=== PATIENT | female | born 1950 | race Caucasian/White ===

== ENCOUNTER → 2016-07-26 | Outpatient (CLI) | payer MEDICARE ==
--- NOTE | 2016-07-27 09:44 | MM ---
Reason for exam: screening (asymptomatic). Last mammogram was performed 1 year and 1 month ago. History: Patient is postmenopausal. Family history of ovarian cancer in paternal cousin and breast cancer in aunt. Physical Findings: A clinical breast exam by your physician is recommended on an annual basis and results should be correlated with mammographic findings. MG 3D Screening Mammo W/Cad Bilateral CC and MLO view(s) were taken. Prior study comparison: June 15, 2015, bilateral MG 3d screening mammo w/cad. June 11, 2014, bilateral MG screening mammo w CAD. The breast tissue is heterogeneously dense. This may lower the sensitivity of mammography. Benign calcifications. There is no discrete abnormality. No significant changes when compared with prior studies. ASSESSMENT: Benign, BI-RAD 2 RECOMMENDATION: Routine screening mammogram of both breasts in 1 year.
== END | disposition home or self-care (01) ==
LOC: RADMAMWWP 14:14
PROVIDERS: ATTEND Internal Medicine
DX: Z12.31 Encounter for screening mammogram for malignant neoplasm of breast (principal)
CPT/HCPCS: 77063; G0202

== ENCOUNTER → 2016-08-25 | Outpatient (CLI) | payer MEDICARE ==
--- NOTE | 2016-08-26 12:06 | NM ---
EXAMINATION TYPE: NM thyroid image w uptake DATE OF EXAM: 08/26/2016 COMPARISON: NONE HISTORY: Nontoxic goiter TECHNIQUE: After the intravenous administration of 10.44 mCi Tc 99m Sodium Pertechnetate, thyroid samson ging is performed 10 minutes post injection. Thyroid iodine uptake is calculated after the oral admin istration of 15.0 uCi I-131 capsule. FINDINGS: There is a nodule in the mid portion of the left thyroid. This appears to be suppressing th e right thyroid somewhat. The 4 hour iodine uptake is calculated at 13.5% (normal range 8-14%). The 24-hour iodine uptake is calculated at 34.5% (normal range 15-35%). IMPRESSION: HOT NODULE IN THE MID POLAR REGION OF THE LEFT LOBE OF THYROID WITH UPTAKE VALUES IN THE UPPER LIMITS OF NORMAL. THYROID ULTRASOUND WOULD BE SUGGESTED.
== END | disposition home or self-care (01) ==
LOC: RADNMMAIN 10:39
PROVIDERS: ATTEND Internal Medicine
DX: E04.1 Nontoxic single thyroid nodule (principal)
CPT/HCPCS: 78014; A9528; A9512

== ENCOUNTER → 2017-08-14 | Outpatient (CLI) | payer MEDICARE ==
--- NOTE | 2017-08-15 13:26 | MM ---
Reason for exam: screening (asymptomatic). Last mammogram was performed 1 year and 1 month ago. History: Patient is postmenopausal. Family history of ovarian cancer in paternal cousin and breast cancer in aunt. Physical Findings: A clinical breast exam by your physician is recommended on an annual basis and results should be correlated with mammographic findings. MG 3D Screening Mammo W/Cad Bilateral CC and MLO view(s) were taken. Prior study comparison: July 26, 2016, bilateral MG 3d screening mammo w/cad. June 15, 2015, bilateral MG 3d screening mammo w/cad. The breast tissue is heterogeneously dense. This may lower the sensitivity of mammography. Finding: There are typically benign vascular, dystrophic, round calcifications in both breasts. There is no discrete abnormality. Developing asymmetry right posterior depth outer CC (14/49) and MLO (22/53). ASSESSMENT: Incomplete: need additional imaging evaluation, BI-RAD 0 RECOMMENDATION: Ultrasound of the left breast. [facility] will attempt to contact patient to return for ultrasound.
== END | disposition home or self-care (01) ==
LOC: RADMAMWWP 16:41
PROVIDERS: ATTEND Internal Medicine
DX: Z12.31 Encounter for screening mammogram for malignant neoplasm of breast (principal)
CPT/HCPCS: 77063; 77067

== ENCOUNTER → 2017-08-17 | Outpatient (CLI) | payer MEDICARE ==
--- NOTE | 2017-08-17 10:25 | USB ---
Reason for exam: additional evaluation requested from abnormal screening. History: Patient is postmenopausal. Family history of ovarian cancer in paternal cousin and breast cancer in aunt. Physical Findings: Nurse did not find any significant physical abnormalities on exam. US Breast Workup Limited LT Left limited breast ultrasound including focal area of concern, retroareolar and axilla demonstrates no cystic or solid lesion seen. No distinct abnormality seen. Additional views recommended. These results were verbally communicated with the patient and result sheet given to the patient on 08/17/17. ASSESSMENT: Incomplete: need additional imaging evaluation, BI-RAD 0 RECOMMENDATION: Special view mammogram of the left breast.
--- NOTE | 2017-08-17 10:27 | MM ---
Reason for exam: additional evaluation requested from abnormal screening. Last mammogram was performed less than 1 month ago. History: Patient is postmenopausal. Family history of ovarian cancer in paternal cousin and breast cancer in aunt. MG 3D Work Up W/Cad LT Spot compression CC, spot compression MLO, and ML view(s) were taken of the left breast. Prior study comparison: August 14, 2017, bilateral MG 3d screening mammo w/cad. July 26, 2016, bilateral MG 3d screening mammo w/cad. There is no discrete abnormality including area of concern. Spot views confirm fibroglandular tissue. These results were verbally communicated with the patient and result sheet given to the patient on 08/17/17. ASSESSMENT: Benign, BI-RAD 2 RECOMMENDATION: Return to routine screening mammogram schedule for both breasts.
== END | disposition home or self-care (01) ==
LOC: RADUSWWP 08:55
PROVIDERS: ATTEND Internal Medicine
DX: R92.8 Other abnormal and inconclusive findings on diagnostic imaging of breast (principal)
CPT/HCPCS: 77065; 76642; G0279; 77061

== ENCOUNTER → 2018-01-26 | Outpatient (CLI) | payer MEDICARE ==
--- NOTE | 2018-01-26 08:28 | MR ---
EXAMINATION TYPE: MR brain wo con DATE OF EXAM: 01/26/2018 7:13 AM COMPARISON: NONE HISTORY: Vertigo FINDINGS: The ventricles, basal cisterns and sulci overlying the cerebral convexities are mildly enlarged. There is evidence of mild periventricular white matter ischemic demyelination. Remote deep white matter insults are also noted. No acute edema is seen on diffusion weighted imaging. There is no evidence for midline shift or mass effect. Acute intracranial hemorrhage or extra-axial collection is not evident. The paranasal sinuses and mastoid air cells are well-aerated. IMPRESSION: Age-related atrophic and chronic small vessel ischemic change. No acute intracranial process at this time.
== END | disposition home or self-care (01) ==
LOC: RADMRIMAIN 06:35
PROVIDERS: ATTEND Internal Medicine
DX: G31.1 Senile degeneration of brain, not elsewhere classified (principal); I67.82 Cerebral ischemia
CPT/HCPCS: 70551

== ENCOUNTER → 2018-09-05 | Outpatient (CLI) | payer MEDICARE ==
--- NOTE | 2018-09-05 16:35 | BD ---
EXAMINATION TYPE: Axial Bone Density DATE OF EXAM: 09/05/2018 COMPARISON: 2013 CLINICAL HISTORY: osteoporosis Height: 5'5 1/2 Weight: 195 FRAX RISK QUESTIONS: Secondary Osteoporosis: RISK FACTORS HISTORY OF: Active: n Postmenopausal woman: y Hyperparathyroidism: parathyroid lower left removed 10/2017 MEDICATIONS: Additional Medications: high blood pressure, cholesterol Additional History: EXAM MEASUREMENTS: Bone mineral densitometry was performed using the [employer] System. Bone mineral density as measured about the Lumbar spine is: ----- L1-L4(G/cm2): 1.196 T Score Values are as follows: ----- L2: -0.8 ----- L3: 0.0 ----- L4: 1.4 ----- L1-L4:0.1 Bone mineral density has: Increased 3.4% since study of: 07/02/2013 Bone mineral density about the R hip (g/cm2): 0.787 Bone mineral density about the L hip (g/cm2): 0.813 T Score values are as follows: -----R Neck: -1.8 -----L Neck: -1.6 -----R Total: -1.4 -----L Total: -1.1 Bone mineral density has: Increased 2.3% since study of: 07/02/2013 IMPRESSION: Osteopenia (T Score between -2.5 and -1). There is slightly increased risk of fracture and the patient may be considered for treatment. Re-Screen 2-5 years. NOTE: T-SCORE=SD OF THE YOUNG ADULT MEAN.
--- NOTE | 2018-09-06 14:48 | MM ---
Reason for exam: screening (asymptomatic). Last mammogram was performed 1 year and 1 month ago. History: Patient is postmenopausal. Family history of ovarian cancer in paternal cousin and breast cancer in aunt. Physical Findings: A clinical breast exam by your physician is recommended on an annual basis and results should be correlated with mammographic findings. MG 3D Screening Mammo W/Cad Bilateral CC and MLO view(s) were taken. Prior study comparison: August 17, 2017, left breast MG 3d work up w/cad LT. August 14, 2017, bilateral MG 3d screening mammo w/cad. The breast tissue is heterogeneously dense. This may lower the sensitivity of mammography. No significant changes when compared with prior studies. ASSESSMENT: Benign, BI-RAD 2 RECOMMENDATION: Routine screening mammogram of both breasts in 1 year.
== END | disposition home or self-care (01) ==
LOC: RADMAMWWP 13:04
PROVIDERS: ATTEND Internal Medicine
DX: Z12.31 Encounter for screening mammogram for malignant neoplasm of breast (principal); M85.80 Other specified disorders of bone density and structure, unspecified site
CPT/HCPCS: 77063; 77067; 77080

== ENCOUNTER → 2019-11-19 | Outpatient (CLI) | payer MEDICARE ==
--- NOTE | 2019-11-20 10:55 | MM ---
Reason for exam: screening (asymptomatic). Last mammogram was performed 1 year and 2 months ago. History: Patient is postmenopausal. Family history of ovarian cancer in paternal cousin and breast cancer in aunt. Physical Findings: A clinical breast exam by your physician is recommended on an annual basis and results should be correlated with mammographic findings. MG 3D Screening Mammo W/Cad Bilateral CC and MLO view(s) were taken. Prior study comparison: September 05, 2018, bilateral MG 3d screening mammo w/cad. August 17, 2017, left breast MG 3d work up w/cad LT. The breast tissue is heterogeneously dense. This may lower the sensitivity of mammography. There are benign appearing vascular calcifications in the right breast. There is no discrete abnormality. ASSESSMENT: Benign, BI-RAD 2 RECOMMENDATION: Routine screening mammogram of both breasts in 1 year.
== END | disposition home or self-care (01) ==
LOC: RADMAMWWP 11:29
PROVIDERS: ATTEND Internal Medicine
DX: Z12.31 Encounter for screening mammogram for malignant neoplasm of breast (principal); Z80.3 Family history of malignant neoplasm of breast
CPT/HCPCS: 77063; 77067

== ENCOUNTER → 2020-11-03 | Outpatient (CLI) | payer MEDICARE ==
--- NOTE | 2020-11-03 19:44 | XR ---
EXAMINATION TYPE: XR Hip Complete 2 views RT, XR femur 2 views RT DATE OF EXAM: 11/03/2020 Comparison: None Clinical History: 70-year-old female R10.31 Findings: Right hip: [id number] degenerative change of the right hip with axial joint space narrowing and marginal s purring and some subchondral sclerosis. No acute fracture, subluxation, or dislocation. Right femur: Femoral shaft shows no evidence for fracture, periostitis, or osteophytosis. Partially visualized rig ht total knee arthroplasty. No significant joint effusion. Impression: 1. Right hip: Mild to moderate right hip OA. 2. Right femur: Partially visualized right total knee arthroplasty. No acute osseous abnormality seen .
== END | disposition home or self-care (01) ==
LOC: RADXRMAIN 14:58
PROVIDERS: ATTEND Internal Medicine
DX: M16.11 Unilateral primary osteoarthritis, right hip (principal); Z96.651 Presence of right artificial knee joint
CPT/HCPCS: 73502

== ENCOUNTER → 2020-12-01 | Outpatient (CLI) | payer MEDICARE ==
--- NOTE | 2020-12-03 13:44 | MM ---
Reason for exam: screening (asymptomatic). Last mammogram was performed 1 year ago. History: Patient is postmenopausal. Family history of ovarian cancer in paternal cousin and breast cancer in aunt. Physical Findings: A clinical breast exam by your physician is recommended on an annual basis and results should be correlated with mammographic findings. MG 3D Screening Mammo W/Cad Bilateral CC and MLO view(s) were taken. Prior study comparison: November 19, 2019, bilateral MG 3d screening mammo w/cad. September 05, 2018, bilateral MG 3d screening mammo w/cad. August 14, 2017, bilateral MG 3d screening mammo w/cad. The breast tissue is heterogeneously dense. This may lower the sensitivity of mammography. No significant changes when compared with prior studies. ASSESSMENT: Benign, BI-RAD 2 RECOMMENDATION: Routine screening mammogram of both breasts in 1 year.
== END | disposition home or self-care (01) ==
LOC: RADMAMWWP 14:17
PROVIDERS: ATTEND Internal Medicine
DX: Z12.31 Encounter for screening mammogram for malignant neoplasm of breast (principal); Z80.3 Family history of malignant neoplasm of breast; Z78.0 Asymptomatic menopausal state
CPT/HCPCS: 77063; 77067

== ENCOUNTER → 2020-12-02 | Outpatient (CLI) | payer MEDICARE ==
--- NOTE | 2020-12-02 13:06 | BD ---
EXAMINATION TYPE: Axial Bone Density DATE OF EXAM: 12/02/2020 COMPARISON: 09.05.2018 CLINICAL HISTORY: 70 YR OLD FEMALE......ICD-10 CODE: M81.0 AGE RELATED OSTEOPOROSIS Height: 65 Weight: 206 FRAX RISK QUESTIONS: Secondary Osteoporosis: YES 2. Hyperthyroidism: YES RISK FACTORS HISTORY OF: Postmenopausal woman: YES AT ABOUT 50 Take estrogen and/or progesterone medications: YES, FOR ABOUT 1 YR ONLY Hyperparathyroidism: YES, FOR 30 YRS, RECENTLY HAD SURGICAL REMOVAL Adrenal Insufficiency: NO MEDICATIONS: Osteoporosis Medications: MONTHLY OSTEOPOROSIS MEDS, BONIVA? FOR ABOUT 2 YRS Additional Medications: BP MEDS, CHOLESTEROL, Additional History: PARATHYROID CONDITION, HYPERTENSION, CHOLESTEROL, HYPERCALCEMIA, OSTEOARTHRITIS, TKR EXAM MEASUREMENTS: Bone mineral densitometry was performed using the [employer] System. Bone mineral density as measured about the Lumbar spine is: ----- L1-L4(G/cm2): 1.247 T Score Values are as follows: ----- L1: 0.4 ----- L2: 0.7 ----- L3: 1.3 ----- L4: -0.4 ----- L1-L4: 0.6 Bone mineral density has: Increased 3.1% since study of: 09.05.2018 Bone mineral density about the R hip (g/cm2): 0.890 Bone mineral density about the L hip (g/cm2): 0.909 T Score values are as follows: -----R Neck: -1.3 -----L Neck: -0.9 -----R Total: -0.9 -----L Total: -0.8 Bone mineral density has: Increased 5.9% since study of: 09.05.2018 FRAX%s: M THERE IS A 9.3% CHANCE FOR A MAJOR OSTEOPOROTIC FX AND A 1.3% FOR HIP......PROBABILITY FO R FX IN 10 YRS TIME IMPRESSION: Normal (Values between +1 and -1 indicate normal bone mass). Consider repeating this study in 5 year s or sooner if there is some new clinical indication. NOTE: T-SCORE=SD OF THE YOUNG ADULT MEAN.
== END | disposition home or self-care (01) ==
LOC: RADBDWWP 09:52
PROVIDERS: ATTEND Internal Medicine
DX: M85.851 Other specified disorders of bone density and structure, right thigh (principal); Z78.0 Asymptomatic menopausal state; I10 Essential (primary) hypertension; E83.52 Hypercalcemia
CPT/HCPCS: 77080

== ENCOUNTER → 2021-12-02 | Outpatient (CLI) | payer MEDICARE ==
--- NOTE | 2021-12-03 13:19 | MM ---
Reason for Exam: Screening (asymptomatic). Last screening mammogram was performed 12 month(s) ago. Patient History: Menarche at age 12. First Full-Term at age 20. Postmenopausal. Paternal cousin had ovarian cancer. Maternal aunt had breast cancer. Risk Values: Jade 5 year model risk: 1.4%. NCI Lifetime model risk: 3.6%. Prior Study Comparison: 09/05/2018 Bilateral Screening Mammogram, [facility]. 11/19/2019 Bilateral Screening Mammogram, [facility]. 12/01/2020 Bilateral Screening Mammogram, [facility]. Tissue Density: The breast tissue is heterogeneously dense. This may lower the sensitivity of mammography. Findings: Analyzed By CAD. Benign bilateral vascular calcifications. Areas of asymmetric density remain unchanged. No significant change from prior exams. Overall Assessment: Negative, BI-RAD 1 Management: Screening Mammogram of both breasts in 1 year. 1. Patient should continue monthly self breast exams. 2. A clinical breast exam by your physician is recommended on an annual basis. 3. This exam should not preclude additional follow-up of suspicious palpable abnormalities. Electronically signed and approved by: Sima Coley M.D. Radiologist
== END | disposition home or self-care (01) ==
LOC: RADMAMWWP 15:37
PROVIDERS: ATTEND Internal Medicine
DX: Z12.31 Encounter for screening mammogram for malignant neoplasm of breast (principal); Z78.0 Asymptomatic menopausal state; Z80.3 Family history of malignant neoplasm of breast
CPT/HCPCS: 77063; 77067

== ENCOUNTER → 2022-12-05 | Outpatient (CLI) | payer MEDICARE ==
--- NOTE | 2022-12-05 15:39 | BD ---
EXAMINATION TYPE: Axial Bone Density DATE OF EXAM: 12/05/2022 CLINICAL HISTORY: 72 years old Female. ICD-10 CODE: M85.852 OTH DISRD OF BONE DENSITY AND STRUCTURE, LEFT THIGH Height: 64.5 Weight: 205.1 FRAX RISK QUESTIONS: Alcohol (3 or more units per day): no Family History (Parent hip fracture): no Glucocorticoids (More than 3mos): no History of Fracture in Adulthood: no Secondary Osteoporosis: 1. Type 1 Diabetes: no 2. Hyperthyroidism: no 3. Menopause before 45: no 4. Malnutrition: no 5. Chronic liver disease: no Rheumatoid Arthritis: no Current Tobacco Use: no RISK FACTORS HISTORY OF: Hip Fracture (Right/Left): no Spine Fracture: no History of Wrist Fracture: no Surgery to Spine/Hip(right/left)/Wrist (right/left): no Family History of Osteoporosis: no Active: no Diet low in dairy products/other sources of calcium: no Postmenopausal woman: yes Take estrogen and/or progesterone medications: no Lost more than 2 inches in height since high school: no Frequent falls: no Poor Health: no Hyperparathyroidism: no Adrenal Insufficiency: no MEDICATIONS: Prednisone or other steroids: no Thyroid Medications: no Osteoporosis Medications: none currently Additional Medications: BP Meds, Cholesterol Meds, Multi Vit., Vit D, Additional History: EXAM MEASUREMENTS: Bone mineral densitometry was performed using the [employer]. Bone mineral density as measured about the Lumbar spine is: ----- L1-L4(G/cm2): 1.197 T Score Values are as follows: ----- L1: 0.2 ----- L2: 0.3 ----- L3: 1.1 ----- L4: -0.9 ----- L1-L4: 0.1 Z Score Values are as follows: ----- L1: 1.0 ----- L2: ----- L3: 1.1 ----- L4: 1.9 ----- L1-L4: 0.9 Bone mineral density has: decreased -4.0 % since study of: 12/02/2020 Bone mineral density about the R hip (g/cm2): 0.889 Bone mineral density about the L hip (g/cm2): 0.996 T Score values are as follows: -----R Neck: -1.2 -----L Neck: -0.2 -----R Total: -0.9 -----L Total: -0.1 Z Score values are as follows: -----R Neck: 0.1 -----L Neck: 1.0 -----R Total: 0.1 -----L Total: 0.9 Bone mineral density has: increased 4.9 % since study of: 12/02/2020 FRAX%s: The graph provided illustrates a 9.4% chance for a major osteoporotic fx and a 1.5% chance fo r the hips probability for fx in 10 years time. IMPRESSION: Osteopenia (T Score between -2.5 and -1). There is slightly increased risk of fracture and the patient may be considered for treatment. Re-Screen 2-5 years. NOTE: T-SCORE=SD OF THE YOUNG ADULT MEAN.
--- NOTE | 2022-12-07 09:25 | MM ---
Reason for Exam: Screening (asymptomatic). Last screening mammogram was performed 12 month(s) ago. Patient History: Menarche at age 12. First Full-Term at age 20. Postmenopausal. Paternal cousin had ovarian cancer. Maternal aunt had breast cancer. Risk Values: Jade 5 year model risk: 1.4%. NCI Lifetime model risk: 3.3%. Prior Study Comparison: 11/19/2019 Bilateral Screening Mammogram, [facility]. 12/01/2020 Bilateral Screening Mammogram, [facility]. 12/02/2021 Bilateral MG 3D screening mammo w/cad, [facility]. Tissue Density: The breast tissue is heterogeneously dense. This may lower the sensitivity of mammography. Findings: Analyzed By CAD. There is no suspicious group of microcalcifications or new suspicious mass in either breast. Overall Assessment: Benign, BI-RAD 2 Management: Screening Mammogram of both breasts in 1 year. . Patient should continue monthly self-breast exams. A clinical breast exam by your physician is recommended on an annual basis. This exam should not preclude additional follow-up of suspicious palpable abnormalities. Note on Jade scores and lifetime risk: 1. A Jade score greater than 3% is considered moderate risk. If this is the case, consider specialist referral to assess eligibility for a risk reducing agent. 2. If overall lifetime risk for the development of breast cancer is 20% or higher, the patient may qualify for future screening with alternating mammogram and breast MRI. Electronically signed and approved by: Feliciano Ravi M.D. Radiologis
== END | disposition home or self-care (01) ==
LOC: RADMAMWWP 14:36
PROVIDERS: ATTEND Internal Medicine
DX: Z12.31 Encounter for screening mammogram for malignant neoplasm of breast (principal); M85.851 Other specified disorders of bone density and structure, right thigh; Z78.0 Asymptomatic menopausal state; Z80.3 Family history of malignant neoplasm of breast
CPT/HCPCS: 77063; 77067; 77080

== ENCOUNTER → 2023-01-26 | Outpatient (CLI) | payer MEDICARE ==
[2023-01-26 15:39] LABS: HGB 14.3 g/dL (12.0-15.0); MCH 33.1 pg (27.0-32.0); MCHC 34.9 g/dL (32.0-37.0); MCV 94.9 FL (80.0-97.0); Mean Platelet Volume 10.4 FL (9.5-12.2); NRBC Per 100 WBC 0 X 10*3/uL (0.00-0.01); Platelet Count 272 X 10*3/uL (140-440); RBC 4.32 X 10*6/uL (4.10-5.20); RDW 11.9 % (11.5-14.5); WBC 4.94 X 10*3/uL (4.50-10.00)
[2023-01-26 16:10] LABS: Blood Urea Nitrogen 12.8 mg/dL (9.0-27.0)
[2023-01-26 16:11] LABS: Carbon Dioxide 24.9 mmol/L (21.6-31.8); Chloride 100 mmol/L (96-109); Potassium 3.7 mmol/L (3.5-5.5); Sodium 137 mmol/L (135-145)
== END | disposition home or self-care (01) ==
LOC: LABPAT 09:43
PROVIDERS: ATTEND Internal Medicine
DX: Z01.812 Encounter for preprocedural laboratory examination (principal); I35.0 Nonrheumatic aortic (valve) stenosis; R94.39 Abnormal result of other cardiovascular function study
CPT/HCPCS: 36415; 80051; 82565; 84520; 85027

== ENCOUNTER 2023-01-30 07:40 | Day surgery (SDC) | payer MEDICARE ==
[~2023-01-30 07:40] MED LIST: ALPRAZolam 0.25 MG TAB PO PRN; ALPRAZolam 0.5 MG TAB PO PRN; ASPIRIN 325 MG TAB PO STA; ATORVASTATIN 80 MG TAB PO STA; HEPARIN SODIUM,PORCINE (1 ML) 2,500 UNIT in SODIUM CHLORIDE 0.9% 250 ML IRRIGATION PRN; HEPARIN SODIUM,PORCINE 10,000 UNIT in SODIUM CHLORIDE 0.9% 1,000 ML IRRIGATION PRN; NITROGLYCERIN SL TABS 0.4 MG TAB SUBLINGUAL PRN; SODIUM CHLORIDE 0.9% 1,000 ML in EMPTY BAG 1 BAG IV SCH
[2023-01-30] MEDS ORDERED: SODIUM CHLORIDE 0.9% 1,000 ML IV ONE (07:52)
[2023-01-30 08:34] VITALS: RESP 16; TEMP 97.7
[2023-01-30] MEDS ORDERED: fentaNYL (PF) 50 MCG/ML 2 ML AMP ONE (08:54)
[2023-01-30] MEDS ORDERED: HEPARIN SODIUM 1,000 UN/ML (10ML VL) ONE (08:54)
[2023-01-30] MEDS ORDERED: VERAPAMIL 2.5 MG/ML 2 ML AMP ONE (08:54)
[2023-01-30] MEDS ORDERED: LIDOCAINE 1% INJ 10MG/ML (20 ML MDV) ONE (08:54)
[2023-01-30] MEDS ORDERED: MIDAZOLAM 2 MG/2 ML VIAL IVP ONE (09:15)
[2023-01-30] MEDS ORDERED: fentaNYL (PF) 50 MCG/ML 2 ML AMP IVP ONE (09:15)
[2023-01-30] MEDS ORDERED: LIDOCAINE 1% INJ 10MG/ML (5 ML VIAL-PF) SQ ONE (09:17)
[2023-01-30] MEDS ORDERED: VERAPAMIL SYRINGE (5 MG/10 ML) INTRAARTER ONE (09:18)
[2023-01-30] MEDS ORDERED: HEPARIN SODIUM 1,000 UN/ML (10ML VL) IV ONE (09:21)
[2023-01-30] MEDS ORDERED: IOPAMIDOL-370 100ML BTL INJ ONE (09:35)
[2023-01-30 11:02] VITALS: PULSE 48
[2023-01-30 11:28] VITALS: BP 122/58
--- NOTE | 2023-01-30 22:02 | P.CARDCATH ---
Description of Procedure: PROCEDURES PERFORMED: Left heart catheterization, bilateral coronary angiography, ultrasound guided arterial access INDICATION: Abnormal stress test CONSENT:I have discussed the risks, benefits and alternative therapies for the above-mentioned procedure and for both sedation/analgesia as well as necessary blood product administration, if indicated, as they pertain to this patient. The patient has indicated understanding and acceptance of the risks and procedures discussed. PROCEDURE: After the risks, benefits and alternatives of the above mentioned procedure explained in detail with the patient, informed consent was obtained. Patient was taken to the catheterization lab and prepped and draped in usual fashion. Ultrasound guidance was used to assess for arterial access. 1% lidocaine was used to anesthetize the right radial artery. A 6-Japanese sheath was placed in the right radial artery using modified Seldinger technique and ultrasound guidance. Left coronary angiography was performed with a 5-Japanese JL 3.5 catheter and right coronary angiography was performed with a 5-Japanese AR2 catheter in various views. A 5-Japanese AR2 catheter was inserted into the left ventricle and pressure measurements were obtained. The right radial sheath was removed and a TR band was placed with hemostasis achieved. The patient to lerated the procedure well. Patient was transported back to the post catheterization holding area in stable condition. Conscious Sedation: Patient was monitored under the direct supervision of myself for conscious sedation using Versed and fentanyl for a total duration of 18 minutes HEMODYNAMICS: Aorta: 144/83 LV: 142/12, LVEDP 22 SELECTIVE CORONARY ARTERIOGRAPHY: LEFT MAIN: The left main is a large caliber vessel which bifurcates into the LAD and circumflex. There is no significant stenosis. LEFT ANTERIOR DESCENDING CORONARY ARTERY: LAD is a large caliber vessel which wraps around to the apex. There is no significant stenosis. LEFT CIRCUMFLEX CORONARY ARTERY: Left circumflex is a moderate caliber vessel without significant stenosis. RIGHT CORONARY ARTERY: The right coronary artery is a large caliber vessel which gives off a PDA and PLV branch and is the dominant vessel. There is no significant stenosis. FINAL IMPRESSION: 1. Normal coronary arteries as described above. 2. Elevated left sided filling pressures PLAN: 1. Aggressive risk factor modification per most recent ACC/AHA guidelines. 2. Consider diuretics
== END 2023-01-30 13:26 | disposition home or self-care (01) ==
LOC: CATHCVL 07:40
PROVIDERS: ATTEND Internal Medicine
DX: I35.0 Nonrheumatic aortic (valve) stenosis (principal); I10 Essential (primary) hypertension; E78.5 Hyperlipidemia, unspecified; Z82.49 Family history of ischemic heart disease and other diseases of the circulatory system; Z79.899 Other long term (current) drug therapy
CPT/HCPCS: 93458; 76937; C1769; C1894; J2250; J2001; J3010; J1644; Q9967

== ENCOUNTER 2023-11-01 08:42 | Day surgery (SDC) | payer MEDICARE ==
[2023-10-27 10:36] VITALS: BMI 29.9
[~2023-11-01 08:42] MED LIST changes: -ALPRAZolam 0.25 MG TAB PO PRN; -ALPRAZolam 0.5 MG TAB PO PRN; -ASPIRIN 325 MG TAB PO STA; -ATORVASTATIN 80 MG TAB PO STA; -HEPARIN SODIUM,PORCINE (1 ML) 2,500 UNIT in SODIUM CHLORIDE 0.9% 250 ML IRRIGATION PRN; -HEPARIN SODIUM,PORCINE 10,000 UNIT in SODIUM CHLORIDE 0.9% 1,000 ML IRRIGATION PRN; +LIDOCAINE 1% (10MG/ML) FOR IV START INTRADERMA PRN; -NITROGLYCERIN SL TABS 0.4 MG TAB SUBLINGUAL PRN; -SODIUM CHLORIDE 0.9% 1,000 ML in EMPTY BAG 1 BAG IV SCH
[2023-11-01 09:11] VITALS: TEMP 98
[2023-11-01] MEDS: IV FLUID CONTINUATION 1,000 ML IV ONE (09:22)
[2023-11-01] MEDS: LACTATED RINGERS 1,000 ML IV SCH (09:23)
[2023-11-01] MEDS ORDERED: PROPOFOL 10 MG/ML 20 ML VIAL IV ONE (09:54)
--- NOTE | 2023-11-01 10:07 | P.PCN ---
Date of Procedure: 11/01/23 Procedure(s) Performed: BRIEF HISTORY: Patient is a 73-year-old pleasant white female scheduled for an elective colonoscopy as a part of screening for colon cancer. PROCEDURE PERFORMED: Colonoscopy with cold snare polypectomy. PREOPERATIVE DIAGNOSIS: Screening for colon cancer. IV sedation per Anesthesia. PROCEDURE: After informed consent was obtained, the patient, was brought into the endoscopy unit. IV sedation was administered by Anesthesia under continuous monitoring. Digital rectal examination was normal. Initially the Olympus CF-160 flexible video colonoscope was then inserted in the rectum, gradually advanced into the cecum without any difficulty. Careful examination was performed as the scope was gradually being withdrawn. Ileocecal valve and the appendiceal orifice were visualized and appeared normal. Prep was excellent. Mucosa of the cecum, ascending colon, appeared normal. The transverse colon there was a 5 mm sessile polyp removed by cold snare polypectomy. Rest of the transverse colon, descending colon, sigmoid colon, and rectum appeared normal. Scattered sigmoid diverticulosis. retroflexion was performed in the rectum and no lesions were seen. The patient tolerated the procedure well. IMPRESSION: 5 mm transverse colon polyp status post cold snare polypectomy Scattered sigmoid diverticulosis RECOMMENDATIONS: Findings of this examination were discussed with the patient as well as her family.. She was advised to follow-up with the biopsy results. If the biopsy reveals adenoma she can have repeat colonoscopy in 5 years.
[2023-11-01 10:37] VITALS: BP 128/74; PULSE 54; RESP 18
== END 2023-11-01 10:54 | disposition home or self-care (01) ==
LOC: ORWHC2ENDO 08:42
PROVIDERS: ATTEND Internal Medicine Gastroenterology
DX: Z12.11 Encounter for screening for malignant neoplasm of colon (principal); D12.3 Benign neoplasm of transverse colon; K57.30 Diverticulosis of large intestine without perforation or abscess without bleeding
CPT/HCPCS: 45385; 88305

== ENCOUNTER → 2023-12-20 | Outpatient (CLI) | payer MEDICARE ==
--- NOTE | 2023-12-20 14:32 | MM ---
Reason for Exam: Screening (asymptomatic). Last screening mammogram was performed 12 month(s) ago. Patient History: Menarche at age 12. First Full-Term at age 20. Postmenopausal. Paternal cousin had ovarian cancer. Maternal aunt had breast cancer. Risk Values: Jade 5 year model risk: 1.4%. NCI Lifetime model risk: 3.1%. Prior Study Comparison: 12/01/2020 Bilateral Screening Mammogram, [facility]. 12/02/2021 Bilateral MG 3D screening mammo w/cad, [facility]. 12/05/2022 Bilateral MG 3D screening mammo w/cad, [facility]. Tissue Density: There are scattered areas of fibroglandular density. Findings: Analyzed By CAD. Right breast: There is no suspicious group of microcalcifications or new suspicious mass. Left breast: There is no suspicious group of microcalcifications or new suspicious mass. Overall Assessment: Negative, BI-RAD 1 Management: Screening Mammogram of both breasts in [address] [facility] will attempt to contact patient to return for supplemental views and ultrasound if indicated. Patient should continue monthly self-breast exams. A clinical breast exam by your physician is recommended on an annual basis. This exam should not preclude additional follow-up of suspicious palpable abnormalities. Note on Jade scores and lifetime risk: 1. A Jade score greater than 3% is considered moderate risk. If this is the case, consider specialist referral to assess eligibility for a risk reducing agent. 2. If overall lifetime risk for the development of breast cancer is 20% or higher, the patient may qualify for future screening with alternating mammogram and breast MRI. [facility], , 12/20/2023 2:22 PM. Electronically signed and approved by: Roberto Miller DO
== END | disposition home or self-care (01) ==
LOC: RADMAMWWP 09:46
PROVIDERS: ATTEND Internal Medicine
CPT/HCPCS: 77063; 77067

== ENCOUNTER → 2024-05-27 | Outpatient (CLI) | payer MEDICARE ==
--- NOTE | 2024-05-27 14:42 | US ---
EXAMINATION TYPE: US carotid duplex BILAT DATE OF EXAM: 05/27/2024 COMPARISON: NONE CLINICAL INDICATION: Female, 74 years old with history of I65.23 Carotid stenosis; No hx TIA, HTN- on meds Additional History: .... TECHNIQUE: Grayscale, color Doppler and spectral Doppler evaluation of the bilateral carotid systems and vertebral arteries. Indirect Doppler criteria was utilized. FINDINGS: EXAM MEASUREMENTS: RIGHT: Peak Systolic Velocity (PSV) cm/sec ----- Right CCA: 66.0 ----- Right ICA: 68.6 ----- Right ECA: 71.2 ICA/CCA ratio: 1.0 RIGHT: End Diastole cm/sec ----- Right CCA: 16.2 ----- Right ICA: 18.0 ----- Right ECA: 0.0 LEFT: Peak Systolic Velocity (PSV) cm/sec ----- Left CCA: 90.8 ----- Left ICA: 84.5 ----- Left ECA: 87.8 ICA/CCA ratio: 0.9 LEFT: End Diastole cm/sec ----- Left CCA: 16.0 ----- Left ICA: 23.0 ----- Left ECA: 0.0 VERTEBRALS (direction of flow): Right Vertebral: Antegrade Left Vertebral: Antegrade Rhythm: Normal PHOTOGRAPHIC PROCESS ATTENDANT NOTES: Plaque seen in bilateral bulbs. No elevated velocities. Color Doppler imaging shows patency with blood flow throughout the carotid artery. Spectral waveforms are within normal limits. IMPRESSION: Right: Less than 50% stenosis of the carotid bifurcation. Left: Less than 50% stenosis of the carotid bifurcation. Criteria for Assigning % of Stenosis / Diameter reduction (Estimation based on the indirect measurements of the internal carotid artery velocities (ICA PSV). 1. Normal (no stenosis)=ICA PSV < 180 cm/s: ratio < 2.0: ICA EDV<40 cm/s. 2. Less than 50% stenosis=ICA PSV < 180 cm/s: ratio < 2.0: ICA EDV<40 cm/s. 3. 50 to 69% stenosis=ICA PSV of 180 to 230 cm/s: ration 2.0 ? 4.0: ICA EDV 40-100 cm/s. PSV 125-180 cm/sec and ICA/CCA PSV Ratio ? 2.0 is also consistent with 50-69% stenosis 4. Greater than 70% stenosis to near occlusion= ICA PSV > 230 cm/s: ratio > 4.0: ICA EDV > 100 cm/s. 5. Near occlusion= ICA PSV velocities may be low or undetectable: variable ratio and ICA EDV. 6. Total occlusion=unable to detect flow. [facility], , 05/27/2024 2:40 PM
== END | disposition home or self-care (01) ==
LOC: RADUSWWP 13:42
PROVIDERS: ATTEND Internal Medicine
DX: I65.23 Occlusion and stenosis of bilateral carotid arteries (principal)
CPT/HCPCS: 93880

== ENCOUNTER → 2024-07-10 | Outpatient (CLI) | payer MEDICARE ==
[2024-07-10 18:16] LABS: Basophils # (A) 0.04 X 10*3/uL (0.00-0.10); Basophils % (A) 0.6 %; Eosinophils # (A) 0.06 X 10*3/uL (0.04-0.35); Eosinophils % (A) 0.9 %; HGB 13.6 g/dL (12.0-15.0); Lymphocytes # (A) 1.47 X 10*3/uL (0.90-5.00); Lymphocytes % (A) 21.9 %; MCH 32.2 pg (27.0-32.0); MCHC 34.9 g/dL (32.0-37.0); MCV 92.4 FL (80.0-97.0); Mean Platelet Volume 10.6 FL (9.5-12.2); Monocytes # (A) 0.59 X 10*3/uL (0.20-1.00); Monocytes % (A) 8.8 %; NRBC Per 100 WBC 0 X 10*3/uL (0.00-0.01); Neutrophils # (A) 4.53 X 10*3/uL (1.80-7.70); Neutrophils % (A) 67.7 %; Platelet Count 253 X 10*3/uL (140-440); RBC 4.22 X 10*6/uL (4.10-5.20)
[2024-07-10 18:57] LABS: ALT 25 U/L (8-44); AST 28 U/L (13-35); Alkaline Phosphatase 65 U/L (41-126); Calcium 9.4 mg/dL (8.7-10.3); Carbon Dioxide 21.8 mmol/L (21.6-31.8); Chloride 102 mmol/L (96-109); Globulin 2.5 g/dL (1.6-3.3); Glucose 104 mg/dL (70-110); Immunoglobulin M 98.7 mg/dL (40.0-280.0); Potassium 3.9 mmol/L (3.5-5.5); Rheumatoid Factor, Qnt <15 IU/mL (0-15); Sodium 138 mmol/L (135-145); Total Bilirubin 0.3 mg/dL (0.3-1.2); Total Protein 6.5 g/dL (6.2-8.2)
[2024-07-10 19:46] LABS: Erythrocyte Sedimentation Rate 16 mm/Hr (0-30)
== END | disposition home or self-care (01) ==
LOC: LABWHC1 05:17
PROVIDERS: ATTEND Internal Medicine
DX: L23.7 Allergic contact dermatitis due to plants, except food (principal)
CPT/HCPCS: 36415; 80053; 82784; 82785; 83970; 85025; 85652; 86038; 86039; 86160; 86162; 86431